=== PATIENT | male | born 1985 | race Caucasian/White ===

== ENCOUNTER 2023-10-16 16:40 | Emergency (ER) | payer OTHER ==
[2023-10-16 16:53] VITALS: BP 116/65; PULSE 97; RESP 18; TEMP 97.7; BMI 30.4
== END 2023-10-16 19:03 | disposition home or self-care (01) ==
LOC: JERFT 16:40 → JER 16:40 → JERFT 19:03
DX: S99.922A Unspecified injury of left foot, initial encounter (principal); W24.0XXA Contact with lifting devices, not elsewhere classified, initial encounter; Y99.0 Civilian activity done for income or pay
CPT/HCPCS: 73630-TC-LT; 73660-TC-LT-FY; 99283-25